=== PATIENT | female | born 1940 | race Caucasian/White ===

== ENCOUNTER 2016-08-15 12:15 | Day surgery (SDC) | payer MEDICARE ==
[~2016-08-15] VITALS: Ht 157.5 cm; Wt 88.9 kg
[~2016-08-15 12:15] MED LIST: 0.9% Sodium Chloride 1,000 ML IV PRN; ALBU8.5H2 INHALATION; ASCO-294 PO; CYA1000I IM; CYAN250014 PO; ERGO2000 PO; FERR-83 PO; FLUT15.88 NS; LETR2.5T4 PO; RIFA550T3 PO; Sodium Chloride LOK Flush 10 mL Syringe IV PRN; fentaNYL-PF 50 mCg/mL 2 mL Inj IVPUSH PRN
[2016-08-15 13:06] VITALS: BP 131/77; PULSE 69; RESP 14; O2SAT 96
--- NOTE | 2016-08-15 13:36 | PCM.ENDEGD ---
EGD Date of Service: Aug 15, 2016 Physician Tramaine Yousif MD Pre Procedure Diagnosis: Anemia Post Procedure Dx & Findings: Hiatal hernia fundic polyps Procedure Esophagogastroduodenoscopy PROCEDURE IN DETAIL: After proper sedation, Olympus video endoscope was inserted into patient's mouth and esophagus was successfully intubated. Scope introduced esophagus. Esophagus showed normal shiny whitish mucosa consistent with squamous cell component. Z line was intact at 32 cm cm from the incisors. Hiatal hernia 7cm. Scope further advanced to the stomach. Stomach showed normal shiny mucosa with normal appearing rugae folds without any ulcer mass erosion. Cardia fundus body antrum pylorus were all visualized. There were several small fundic polyps largest one was about 3 mm. Sampling biopsies obtained. Retroflexion was done. Stomach was easily inflated and deflatable using air. Scope further events to the distal duodenum. Duodenum revealed normal villous structures with normal appearing folds without any mass ulcer erosion. Biopsy 5 obtained for rule out celiac disease. Impression Hiatal hernia Fundic polyp No source of anemia found. Recommendation Colonoscopy with chinchilla prep Presedation Assessment Risks and Benefits Informed consent was obtained from the patient after all risks and benefits including but not limited to drug reaction, infection, pain, bleeding, perforation, as well as alternatives were discussed. Patient monitoring Continuous pulse oximetry, cardiac monitoring, blood pressure monitoring, IV access, and oxygen at 2L per nasal cannula. Periprocedural Fentanyl: Fentanyl 75mcg Incrementally Midazolam: Midazolam 4mg Incrementally Complications There were no periprocedural complications identified. Post Procedure Plan Post Procedure Recommendations 1. Restrict activities today. 2. Resume normal activities in the morning. 3. Resume medications. 4. GERD behavioral modification: - Avoid fatty, acidic, spicy, large meals - Do not lie down after meals - Do not eat or drink anything for at least 2 1/2 hours before going to bed at night - Discontinue tobacco and alcohol - Decrease or avoid caffeine - Avoid chocolate and mints - Decrease weight - Avoid aspirin and non steroidal anti-inflammatory agents (NSAID) such as Aleve, Advil, Mobic, Naproxen, Ibuprofen, etc 5. Add proton pump inhibitor. Take 30 minutes before 1st meal of the day. 6. Patient informed of normal post procedure side effects as bloating, drowsiness, blood streaking in the stool 7. If gastric biopsy reveal H.pylori, continue with appropriate treatment 8. If small bowel biopsy reveals celiac, continue with appropriate treatment 9. Please don't hesitate to call me with any questions Tramaine Yousif MD Aug 15, 2016 13:36
[2016-08-15 13:42] VITALS: BP 94/49; PULSE 64; RESP 12; O2SAT 92
[2016-08-15 13:52] VITALS: BP 95/46; PULSE 58; RESP 12; O2SAT 93
[2016-08-15 14:02] VITALS: BP 99/48; PULSE 57; RESP 12; O2SAT 93
[2016-08-15 14:12] VITALS: BP 103/47; PULSE 56; RESP 14; O2SAT 94
[2016-08-15 14:22] VITALS: BP 109/52; PULSE 55; RESP 14; O2SAT 95
--- NOTE | 2016-08-18 15:50 | PATH ---
SURGICAL PATHOLOGY Attending Physician:Tramaine Yousif M.D. CASE STATUS: Signed Out PATIENT NAME: Jenny STARK PID: [id number] : 1940 DATE COLLECTED:08/15/2016 00:00 SPECIMEN: 1: Small Intestine/Bowel, Biopsy 2: Stomach, Polyp, Biopsy CLINICAL HISTORY: 1). SMALL BOWEL BIOPSY 2). FUNDAL POLYP FINAL DIAGNOSIS: 1. Small Bowel Biopsy: Duodenal mucosa with patchy ischemic type changes. Please see comment. Negative for active inflammation, features of sprue, dysplasia, or malignancy. 2. Fundal Polyp, Biopsy: Gastric antral and body-type mucosa with chronic active gastritis. Negative for H. pylori organisms by immunohistochemistry studies. ICD10: K29.7 NOTE: 1. The differential diagnosis includes true vascular ischemia, infection, and trauma, in the appropriate clinical context. GROSS DESCRIPTION: The specimen is received in two formalin filled containers labeled with the patient's name. 1). The specimen is sublabeled "small bowel" and consists of 4 portions of tissue which aggregate to 0.3 x 0.3 x 0.2 CM. The specimen is entirely submitted in cassette 1A. 2). The specimen is sublabeled "fundal polyp" and consists of a 0.2 x 0.2 x 0.2 CM portion of tissue which is entirely submitted in cassette 2A. 08/16/2016 [facility] MICRO DESCRIPTION: IMMUNOHISTOCHEMISTRY: Block 2A: H. pylori: Negative. * This test was developed and its performance characteristics determined by [facility]. It has not been cleared or approved by the U.S. Food and Drug Administration. The FDA has determined that such clearance or approval is not necessary. This test is used for clinical purposes. It should not be regarded as investigational or for research. ICD-9 CODES: CPT CODES: 1: 10303 2: 97320, 94918 Electronically Signed Out Blanca Pierson MD [facility] Pathology [facility] [address], [place] [address] Technical component performed at [facility], [address], [place], [address]
== END 2016-08-15 23:59 | disposition home or self-care (01) ==
LOC: END 12:15
PROVIDERS: ATTEND Internal Medicine
DX: D50.9 Iron deficiency anemia, unspecified (principal); K44.9 Diaphragmatic hernia without obstruction or gangrene; K31.7 Polyp of stomach and duodenum; I71.4 Abdominal aortic aneurysm, without rupture; Z85.3 Personal history of malignant neoplasm of breast
CPT/HCPCS: 43239; 88305; 88342; G0500; J2250; J3010; J7030